=== PATIENT | male | born 1930 | race Caucasian/White ===

== ENCOUNTER 2016-07-31 23:00 | Inpatient (IN) | payer MEDICARE, BC ==
[~2016-07-31] VITALS: Ht 172.7 cm; Wt 68.2 kg
--- NOTE | ~2016-07-31 | CON ---
PATIENT'S NAME: ELADIO SIMMS [facility] AGE: 85 Y [address] ROOM: [place] [address] LOCATION: GPCU ADMIT DATE: 08/01/2016 Consultation DISCHARGE DATE: 08/10/2016 FAMILY PHYSICIAN: Miko Hirsch MD ATTENDING PHYSICIAN: Laureano Lambert DATE OF CONSULTATION: 08/04/2016 REFERRING PHYSICIAN: Leonidas Finley MD INDICATION: Acute on chronic respiratory failure with history of pulmonary fibrosis. HISTORY OF PRESENT ILLNESS: This is an 85-year-old male admitted for shortness of breath and chest pain. He has a history of pulmonary fibrosis; chronic respiratory failure, using 4 L per nasal cannula continuously at home; COPD; CAD; and other comorbidities. He was admitted back in May for bilateral pneumonia and discharged in June to a residential and then last week back to home. The last few days, he reports increased shortness of breath, requiring up to 6 L per nasal cannula. He was started on Levaquin and changed to Zosyn recently. He had an ABG done that was okay. Chest x-ray shows effusions with consolidation and scarring. His O2 needs have not improved any despite current adjustments in medications. He still continues to complain of shortness of breath and cough with white sputum. No wheezing, edema, or hemoptysis. PAST MEDICAL HISTORY: Pulmonary fibrosis; chronic respiratory failure; CAD; atrial fibrillation; MVR, on long-term anticoagulation; hypertension; and diabetes. ALLERGIES: SEE MAR. MEDICATIONS: See MAR. FAMILY HISTORY: Significant for CAD in his father. His brother and sister had CAD. His brother also had prostate cancer. SOCIAL HISTORY: He is and lives with his in [place]. He denies any history of tobacco or alcohol use. REVIEW OF SYSTEMS: A 12-point review of systems negative except for what is noted in the HPI. PATIENT'S NAME: ELDAIO SIMMS [facility] AGE: 85 Y [address] ROOM: [address] [address] LOCATION: GPCU ADMIT DATE: 08/01/2016 Consultation DISCHARGE DATE: 08/10/2016 FAMILY PHYSICIAN: Miko Hirsch MD ATTENDING PHYSICIAN: Laureano Lambert PHYSICAL EXAMINATION: VITAL SIGNS: Blood pressure 116/59, pulse 88, respirations 20, temperature 97.6, and 93% on 5 L nasal cannula. GENERAL: This is an 85-year-old male, well developed, well nourished, without any acute distress. He is alert and oriented x3. HEENT: Head: Normocephalic and atraumatic. Eyes: Clear. NECK: Supple. No adenopathy. No carotid bruits or JVD. LUNGS: Diminished with rhonchi and rales. No wheezes. HEART: Regular rate and rhythm without murmur, gallop, or rub. ABDOMEN: Soft, nontender, and nondistended. Bowel sounds x4. EXTREMITIES: No cyanosis, clubbing, or edema. DIAGNOSTIC DATA: Procalcitonin less than 0.05, lactate 3, proBNP 771, and INR was 4.5 on admission. ASSESSMENT: 1. Acute on chronic respiratory failure, multifactorial, question related to progression of pulmonary fibrosis versus pneumonia versus effusion versus fluid overload. 2. Pulmonary fibrosis, question worsening. 3. Cor pulmonale/severe pulmonary hypertension, question fluid overload. 4. Chronic obstructive pulmonary disease. 5. Pneumonia. PLAN: We will check CT of the chest to better differentiate between differential diagnoses. We will also order a sputum culture and continue with current antibiotics as ordered for now. We will hold off on steroids until CT of the chest is available, agree with increasing diuretics for now. We will also have the patient work on incentive spirometer and flutter valve. Further recommendations will be made per Dr. Paul, pending his evaluation, and results of testing. Thank you for the consult and opportunity to participate in the patient's care. PEGGY MORALES APRN FOR CRISSY PAUL, [facility]/modl PATIENT'S NAME: ELADIO SIMMS [facility] AGE: 85 Y [address] ROOM: [place] [id number] LOCATION: GPCU ADMIT DATE: 08/01/2016 Consultation DISCHARGE DATE: 08/10/2016 FAMILY PHYSICIAN: Miko Hirsch MD ATTENDING PHYSICIAN: Laureano Lambert /[id number] d: 09/26/16 1838 t: 09/28/16 0741, CONSULTATION REPORT
--- NOTE | ~2016-07-31 | CON ---
PATIENT'S NAME: ELADIO SIMMS [facility] AGE: 85 Y [address] ROOM: [id number] [place], [place] [address] LOCATION: GPCU ADMIT DATE: 08/01/2016 Consultation DISCHARGE DATE: FAMILY PHYSICIAN: SKYLA DIAMOND MD ATTENDING PHYSICIAN: Laureano Lambert DATE OF CONSULTATION: 08/04/2016 REFERRING PHYSICIAN: Leonidas Finley MD REFERRING PROVIDER: Gurjit Byrd M.D. HISTORY OF PRESENT ILLNESS: This is a pleasant 85-year-old male, who was recently admitted on August 01, 2016, with acute on chronic hypoxic respiratory failure. The patient does have a past medical history of mechanical aortic valve replacement, on long- term anticoagulation as well as atrial fibrillation. The patient did experience a bowel movement yesterday, staff reports there was a small amount of bright red blood per rectum. We were asked to see in consultation for the noted blood in the stool. The patient was seen and examined. The patient denies any britni abdominal pain, nausea, or vomiting. He does state that intermittently he does experience bright red blood at home. In review of the patient's medical history, he did undergo a full colonoscopy due to lower GI bleed in [address] Donnell Davis. At that time, the patient was found to have severe diverticulosis as well as internal and external hemorrhoids. The patient also was admitted in May 2016 and also experienced bright red blood within his stool and a positive occult heme test. The patient then underwent a flexible sigmoidoscopy that was essentially for any acute bleed. The patient was found to have grade 2 to 3 hemorrhoids that is most likely the cause at that time for his bleed. The patient's hemoglobin has remained stable. The patient denies any associated abdominal pain, nausea, vomiting, chest pain, chest pressure, or shortness of breath. PAST MEDICAL HISTORY: Pulmonary fibrosis; atrial fibrillation; mechanical aortic valve replacement, on long-term anticoagulation with being Coumadin; coronary artery disease; chronic hypoxic respiratory failure, status post CABG; essential hypertension; diabetes mellitus type 2; and chronic constipation. PAST SURGICAL HISTORY: Mechanical valve replacement, CABG, colonoscopy and upper endoscopy in 2013, flexible sigmoidoscopy in May 2016, right renal artery stent, and tonsillectomy. SOCIAL HISTORY: PATIENT'S NAME: ELADIO SIMMS [facility] AGE: 85 Y [address] ROOM: [id number] [place], [place] [address] LOCATION: GPCU ADMIT DATE: 08/01/2016 Consultation DISCHARGE DATE: FAMILY PHYSICIAN: SKYLA DIAMOND MD ATTENDING PHYSICIAN: Laureano Lambert The patient is and lives in [place]. He has no significant history of tobacco or alcohol use. FAMILY HISTORY: The patient's mother had heart problems and coronary artery disease. The patient's sister also had heart disease. The patient's brother had prostate cancer. The patient's sister had breast cancer. He had 2 brothers with heart bypass. ALLERGIES: NO KNOWN MEDICATION ALLERGIES. CURRENT MEDICATIONS: Please refer to the medication administration record. REVIEW OF SYSTEMS: A 10-point review of systems was completed. All were negative except for those identified in the history of present illness. PHYSICAL EXAMINATION: GENERAL: Pleasant, 85-year-old male, who is sitting in the chair, who appears to be in no acute distress. VITAL SIGNS: Temperature 97.6, pulse of 90, respirations of 20, blood pressure 153/74, and oxygen saturation is 96% on 5 L nasal cannula. SKIN: [place], warm, and dry. No jaundice. HEENT: Head is normocephalic and atraumatic. Pupils are equal, round, and reactive to light. Sclerae are clear. Nonicteric. Oral mucosa is pink and moist. No thyromegaly. NECK: Soft and supple. CARDIOVASCULAR: Regular. Normal S1 and S2. RESPIRATORY: Respirations even and unlabored. LUNGS: Clear to auscultation. ABDOMEN: Soft, round, nontender, and nondistended. Bowel sounds positive x4 quadrants. MUSCULOSKELETAL: No muscle weakness or atrophy. EXTREMITIES: No clubbing, cyanosis, or edema. NEUROLOGIC: Grossly nonfocal. LABS AND DIAGNOSTICS: The patient was admitted with a hemoglobin of 10.6. Hemoglobin this morning was 10.8 with hematocrit of 35.8. Chemistry panel from August 03, 2016, included glucose of 115, BUN of 25, creatinine 0.9, sodium 139, potassium 4.2, chloride 102, CO2 of 28, and albumin of 3.1. Liver enzymes have been within normal limits. Phosphorus of 3.4. Pro-time of 16.2. INR is 1.5. PATIENT'S NAME: ELADIO SIMMS [facility] AGE: 85 Y [address] ROOM: [address] [place], [place] [address] [facility] ADMIT DATE: 08/01/2016 Consultation DISCHARGE DATE: FAMILY PHYSICIAN: SKYLA DIAMOND MD ATTENDING PHYSICIAN: Laureano Lambert ASSESSMENT AND PLAN: Again, this is a pleasant 85-year-old male, who was recently admitted with acute on chronic respiratory failure secondary to pneumonia. The patient did have a bowel movement as bright red blood was noted within the stool. We were asked to see in consultation for this. After further evaluation as well as the patient's hemoglobin remaining stable as well as recent flexible sigmoidoscopy completed in May 2016, we will recommend to continue watching this patient and monitoring the patient's hemoglobin as well as stool output. The patient's bleed is likely related to significant hemorrhoids that were found in May. The patient is recommended to go back on long-term anticoagulation secondary to his mechanical valve as well as atrial fibrillation. Again, continue monitoring of the patient's hemoglobin is recommended as well. We will also discontinue the Protonix drip at this time. Further recommendations to be given over the patient's clinical course. Thank you for this consult and allowing us to participate in the care of this patient. We will continue to monitor, evaluate, and treat as appropriate. ANDER GRANADO APRN FOR MD ANDREW DURAN/modl /[id number] d: 08/04/161816 t: 08/15/16 1734, CONSULTATION REPORT
--- NOTE | ~2016-07-31 | ER ---
PATIENT'S NAME: ELADIO SIMMS [facility] AGE: 85 Y [address] ROOM: [place] [address] LOCATION: [facility] ADMIT DATE: 07/31/2016 ER/Outpatient Report DISCHARGE DATE: FAMILY PHYSICIAN: Miko Hirsch MD ATTENDING PHYSICIAN: Aris Pennington Admission date and time documented in the medical record. I saw the patient at 2315 hours. CHIEF COMPLAINT: Chest pain and shortness of breath. HISTORY OF PRESENT ILLNESS: The patient is an 85-year-old male, who had onset of anterior chest pain with increasing shortness of breath, weakness, lightheadedness around 1930 hours this evening. [facility] EMS crew brought the patient to the emergency room for evaluation. En route, they gave him 3 baby aspirin. His pain pretty much resolved. He continued to have a little bit of shortness of breath and was on 6 L oxygen on arrival here. The patient does have a history of chronic respiratory failure, COPD, pulmonary fibrosis, home O2 requirement 06/02. He does have systolic congestive heart failure and recently had pneumonia. Recently, he was released from the intermediate after he convalesced and recovered from his bout with pneumonia. The patient does have non-insulin- dependent diabetes mellitus, no other endocrine problems. He has had some syncope but no other neuro changes. Does have valvular heart disease, aortic stenosis, status post aortic valve replacement. He has paroxysmal atrial fibrillation and is on chronic anticoagulation, using Coumadin. He has had some previous rectal bleeding from hemorrhoids and diverticulosis. Does have some chronic renal disease. He has renal artery stenosis, has been stented. No abdominal pain or chest pain at this time. No nausea, vomiting, diarrhea, or urinary complaints. No syncope. Recently, he had pneumonia, otherwise over the past week, he has not had any fever, chills, sweats, coughs, colds, or flus. No headache, eyes, ears, nose, throat, neck, or spine pain. No skin eruptions or rash. HOME MEDICATIONS: See attached medication list. ALLERGIES: NONE. SOCIAL HISTORY: Nonsmoker, nondrinker. SIGNIFICANT PAST MEDICAL HISTORY: Atherosclerotic ischemic heart disease, coronary artery disease, valvular heart disease with aortic stenosis, COPD, acute on chronic respiratory PATIENT'S NAME: ELADIO SIMMS [facility] AGE: 85 Y [address] ROOM: [place], [place] [address] LOCATION: ED ADMIT DATE: 07/31/2016 ER/Outpatient Report DISCHARGE DATE: FAMILY PHYSICIAN: Miko Hirsch MD ATTENDING PHYSICIAN: Aris Pennington failure, pneumonia, systolic congestive heart failure, renal artery stenosis, syncope, cervical spinous process fracture, ieo-vmlydco-kfrpjsonz diabetes mellitus type 2, peripheral vascular disease, diverticulosis in sigmoid region, hemorrhoids, pulmonary fibrosis with home O2 requirement 24/7, 4 L/minute. OPERATIONS: Aortic valve replacement, C-spine fracture repair, tonsillectomy, adenoidectomy, colonoscopy, sigmoidoscopy, cardiac catheterization with PTCA and stenting, also stenting of the renal artery, coronary artery bypass graft. REVIEW OF SYSTEMS: All systems reviewed by me are negative with the exception of those discussed in the history of present illness. PHYSICAL EXAMINATION: VITAL SIGNS: Blood pressure 123/60, pulse 100, respirations 24, O2 saturation on 6 L oxygen per nasal cannula is 96%. HEENT: Head: Normocephalic. Eyes: Clear. Ears: Clear TMs bilaterally. Nose and Throat: Clear. Mucous membranes moist. Teeth and jaw intact. NECK: No nuchal rigidity. No thyromegaly or cervical adenopathy. No tenderness. SPINE: Negative. LUNGS: Decreased breath sounds, diffusely basilar rales. The patient is tachypneic. HEART: Tachy, regular. Pulses palpable. No chest wall or ribcage pain to palpation. ABDOMEN: Soft, nondistended, nontender. Good bowel tones. No organomegaly or abnormal mass palpable. No CVA tenderness. EXTREMITIES: Without peripheral edema, cyanosis, or deformity. Neurovascularly intact. SKIN: Clear. No skin eruptions or rash. LABORATORY DATA AND X-RAYS: Chest x-ray showed bibasilar fluid, pulmonary effusion. He has congestive heart failure pattern. Could have some infiltrate in the bases. We will review x-ray with the radiologist. EKG showed sinus rhythm. No acute ST elevation, ischemic change, or arrhythmia. Fmdbd-nh-kgvu cardiac enzymes were normal. CPK was normal at 49. Magnesium was normal at 2.1. CRP was normal at less than 0.29. ProBNP was elevated at 933. Arterial blood gases on 6 L oxygen showed a pH of 7.4, pCO2 of 46, pO2 of 74, with an O2 saturation of 95%. Lactate was elevated at 2.8. Procalcitonin was normal at less than 0.05. CMS was normal except for low glucose of 42, elevated BUN of 39, elevated creatinine of 1.4, low GFR of 48. PATIENT'S NAME: ELADIO SIMMS [facility] AGE: 85 Y [address] ROOM: [place], [place] [address] LOCATION: [facility] ADMIT DATE: 07/31/2016 ER/Outpatient Report DISCHARGE DATE: FAMILY PHYSICIAN: Miko Hirsch MD ATTENDING PHYSICIAN: Aris Pennington White count was 11,900, 80 segs, 11 lymphs, 8 monos, 1 eosinophil, hemoglobin was 10.6, hematocrit 35.5 platelet count was 204,000. Sedimentation rate was 20. PTT was 41, pro-time was 57.3 with an INR of 4.8. EMERGENCY DEPARTMENT COURSE: I did start the patient on some IV normal saline 100 mL an hour. Did give him a half an amp of D50 IV for his hypoglycemia. IMPRESSION: 1. Chest pain with known atherosclerotic ischemic heart disease with coronary artery disease. The patient is status post coronary bypass graft. 2. Valvular heart disease with aortic stenosis, status post aortic valve replacement. The patient is on chronic anticoagulation with Coumadin. 3. Systolic congestive heart failure. 4. Chronic obstructive pulmonary disease. 5. Acute on chronic respiratory failure. 6. Renal artery stenosis with chronic kidney disease. 7. Chronic anticoagulation with Coumadin. 8. Xlj-huisnhb-fooserymx diabetes mellitus type 2. The patient is hypoglycemic here in the emergency department. 9. Peripheral vascular disease. 10. History of lower gastrointestinal bleed secondary to hemorrhoids and diverticulosis. 11. History of pulmonary fibrosis, requiring O2 at 4 L of oxygen per minute, 24/7 at home. 12. History of paroxysmal atrial fibrillation. PLAN: I did discuss the patient with Dr. Lambert, hospitalist. We will admit the patient for observation in the hospital PCU telemetry. Further evaluation and treatment per Dr. Lambert. Discussed my findings and recommendations with the patient. He understands. The patient will be admitted to the PCU telemetry. MD GERALDINE BARON/sher /[id number] d: 08/01/16 0152 t: 08/01/16 1811, OUTPATIENT REPORT
--- NOTE | ~2016-07-31 | HP ---
PATIENT'S NAME: ELADIO SIMMS [facility] AGE: 85 Y [address] ROOM: [place] [address] LOCATION: GPCU ADMIT DATE: 08/01/2016 History & Physical DISCHARGE DATE: FAMILY PHYSICIAN: SKYLA DIAMOND MD ATTENDING PHYSICIAN: Laureano Lambert DATE OF SERVICE: CHIEF COMPLAINT: Cdcum-yd-xpjzovs hypoxic respiratory failure. HISTORY OF PRESENTING ILLNESS: This 85-year-old white male with known history of coronary artery disease and chronic hypoxic respiratory failure, was brought to [facility] Emergency Room by [facility] with shortness of breath and chest pain, which came on around 7:30 this evening after he had eaten. He received some aspirin en route to the hospital and his chest pain had essentially resolved by the time he arrived here. He did have some increased oxygen demand from his usual 4 L to 6 L per nasal cannula. Currently, he reports feeling better, but complains of feeling weak and short of breath. He had recently been hospitalized for pneumonia and then subsequently discharged to a nursing facility. He had been getting along relatively well there and was discharged to home this past week. He has apparently not been doing well since returning home. He denies fevers, chills, or sweats. Appetite has been fair. No difficulties with chewing or swallowing. Denies britni chest pain and no abdominal pain. He has been stooling and voiding per his usual. No numbness, tingling, or weakness in his extremities or any other associated physical or constitutional complaints. PAST MEDICAL HISTORY: ALLERGIES: NO KNOWN DRUG ALLERGIES. ILLNESSES: 1. Coronary artery disease, status post coronary artery bypass grafting. 2. Chronic hypoxic respiratory failure. 3. Pulmonary fibrosis. 4. Atrial fibrillation. 5. Mechanical aortic valve replacement, on long-term anticoagulation with warfarin. 6. Essential hypertension. 7. Diabetes mellitus type 2. 8. Chronic constipation. CURRENT MEDICATIONS: PATIENT'S NAME: ELADIO SIMMS [facility] AGE: 85 Y [address] ROOM: [place] [address] LOCATION: GPCU ADMIT DATE: 08/01/2016 History & Physical DISCHARGE DATE: FAMILY PHYSICIAN: SKYLA DIAMOND MD ATTENDING PHYSICIAN: Laureano Lambert 1. Aspirin 81 mg p.o. daily. 2. Coumadin daily. 3. Anusol cream suppository b.i.d. p.r.n. 4. Isosorbide mononitrate 30 mg p.o. b.i.d. 5. Metformin 1000 mg p.o. b.i.d. 6. Omeprazole 40 mg p.o. daily. 7. Potassium 40 mEq p.o. daily. 8. Ramipril 2.5 mg p.o. b.i.d. 9. Simvastatin 40 mg p.o. daily. 10. Sotalol 80 mg p.o. b.i.d. 11. Albuterol per nebulizer q.6 hours p.r.n. 12. Glimepiride 4 mg p.o. daily. 13. Lasix 20 mg p.o. daily. 14. Magnesium oxide 400 mg p.o. daily. FAMILY HISTORY: Significant for coronary artery disease in his father. His brother and sister also had coronary artery disease. His brother had prostate cancer. SOCIAL HISTORY: He is and lives in [place]. There is no significant history of tobacco use or alcohol use. REVIEW OF SYSTEMS: As per HPI. All other organ systems reviewed and are negative. OBJECTIVE: VITAL SIGNS: Temperature 97.1, pulse 100, respirations 24, blood pressure 123/60, and O2 saturation 96% on 6 L per simple mask. GENERAL: He is frail, mildly ill-appearing, in no acute distress. SKIN: Supple, pink, warm, dry. No obvious rashes. HEENT: Otherwise, normocephalic. Sclerae nonicteric. Pupils equal, round, and reactive to light and accommodation. Extraocular movements appear intact. Nasal turbinates normal in appearance. Oropharynx is clear. Mucous membranes are pink and moist. NECK: Supple. No masses or adenopathy. No thyromegaly. No obvious JVD in the seated position. CHEST: Chest wall symmetrical. HEART: Irregular with a grade 2 to 3/6 systolic ejection murmur. LUNGS: Diminished at the bases. No crackles but coarse. There is some large airway congestion. ABDOMEN: Soft, nontender. Bowel sounds present. No mass or hepatosplenomegaly. and RECTAL: Not done. EXTREMITIES: Display no significant clubbing, cyanosis, or edema. PATIENT'S NAME: ELADIO SIMMS [facility] AGE: 85 Y [address] ROOM: [id number] [place], [place] [address] [facility] ADMIT DATE: 08/01/2016 History & Physical DISCHARGE DATE: FAMILY PHYSICIAN: SKYLA DIAMOND MD ATTENDING PHYSICIAN: Laureano Lambert LABORATORY AND X-RAY DATA: CBC showed a white blood cell count elevated at 11.9, hemoglobin is 10.6, hematocrit 35.5, platelets 204. Chemistries reveal a BUN and creatinine of 39 and 1.4 respectively, sodium and potassium of 141 and 4.6, chloride and CO2 are 105 and 25, calcium is 8.8, AST and ALT of 13 and 18 respectively, bilirubin is 0.2. Magnesium was 2.1. Glucose was low at 42 (this has been corrected). Sedimentation rate was 20. INR was elevated at 4.8. Cardiac enzymes revealed a troponin I of less than 0.04, CPK of 49, CK-MB was 2.5 and proBNP was 933. ABGs revealed a pH of 7.4, pCO2 of 46, pO2 of 74. Lactate was elevated at 2.8. Procalcitonin was less than 0.05. Chest x-ray showed findings consistent with bilateral pleural effusions and some bibasilar infiltrate. ASSESSMENT AND PLAN: 1. Mcwsk-mg-aielgch hypoxic and hypercapnic respiratory failure, multifactorial: We will admit to inpatient care. We will provide supportive cares and supplemental oxygen. Encourage good pulmonary hygiene. We will go ahead and initiate antibiotic therapy with levofloxacin and follow up on blood culture results when they are available. We will likely reconsult Pulmonology who have been following his case. 2. Atypical chest pain, resolved. We will trend cardiac enzymes. Plan to continue with aspirin therapy, statin therapy and monitor. 3. Acute kidney injury, prerenal: We will initiate some very gentle IV fluid hydration therapy and monitor. 4. Diabetes mellitus type 2: We will manage with Accu-Cheks and sliding scale insulin. 5. Severe pulmonary hypertension: We will try to encourage good pulmonary hygiene as above. Watch his fluid volume balance. 6. Coronary artery disease: As above, we will continue with aspirin and statin therapy. He is clinically stable currently. 7. Generalized weakness: He might benefit from some physical therapy and occupational therapy. I suspect that he has probably failed his first trial back at home and may need some consideration for permanent long- term care placement. 8. Valvular heart disease, status post aortic valve replacement, stable, on long-term anticoagulation with warfarin. He is a little supratherapeutic, and we will hold his Coumadin tonight and follow his PT and INR. 9. Deep venous thrombosis prophylaxis: He is fully anticoagulated with warfarin. We will mobilize as he is physically able. PATIENT'S NAME: ELADIO SIMMS [facility] AGE: 85 Y [address] ROOM: [place] [address] LOCATION: [facility] ADMIT DATE: 08/01/2016 History & Physical DISCHARGE DATE: FAMILY PHYSICIAN: SKYLA DIAMOND MD ATTENDING PHYSICIAN: Laureano Lambert MD EVANGELISTA ALEMAN/sher /[id number] D: [id number] T: 750 HISTORY & PHYSICAL
--- NOTE | ~2016-07-31 | DS ---
PATIENT'S NAME: ELADIO SIMMS [facility] AGE: 85 Y [address] ROOM: [place] [id number] LOCATION: GPCU ADMIT DATE: 08/01/2016 Discharge Summary DISCHARGE DATE: 08/10/2016 FAMILY PHYSICIAN: Miko Hirsch MD ATTENDING PHYSICIAN: Laureano Lambert PRIMARY DIAGNOSES: 1. Irirv-hw-hhnpact cor pulmonale. 2. Ydnlg-zq-jaxrlpf hypoxic and hypercapnic respiratory failure with chronic obstructive pulmonary disease. 3. Idiopathic pulmonary fibrosis. 4. Healthcare-acquired pneumonia. 5. Diabetes mellitus type 2. 6. Chronic systolic and diastolic congestive heart failure. 7. Moderate protein-calorie malnutrition (present at admission). 8. Hemorrhoids with lower gastrointestinal bleeding. OPERATIONS OR PROCEDURES: None. HISTORY OF PRESENTING ILLNESS AND REASON FOR ADMISSION: Please refer to the H and P dictated on 08/01/2016. HOSPITAL COURSE: The patient was admitted to the hospital as noted above with a presumptive diagnosis of hcezv-lb-lbumtbx hypoxic and hypercapnic respiratory failure. Clinical evaluation revealed suspected healthcare- acquired pneumonia. He was treated for known cor pulmonale with careful diuresis. His clinical condition was slow to improve. Antibiotic therapy was adjusted to include linezolid to cover for MRSA. His cultures remained negative over the course of his hospital stay. He did receive some physical therapy occupational therapy. He completed a 7- day course of linezolid. Pulmonology did assist in management. By the end of the 10th day of his hospital stay, it was felt he would be stable enough for discharge to home, to resume home health and continue home oxygen therapy. DISCHARGE INSTRUCTIONS: DIET: ADA, 2000-calorie per day as tolerated. ACTIVITY: As tolerated. He will have physical therapy and occupational therapy at home. MEDICATIONS: PATIENT'S NAME: ELADIO SIMMS [facility] AGE: 85 Y [address] ROOM: [place] [id number] LOCATION: GPCU ADMIT DATE: 08/01/2016 Discharge Summary DISCHARGE DATE: 08/10/2016 FAMILY PHYSICIAN: Miko Hirsch MD ATTENDING PHYSICIAN: Laureano Lambert 1. Augmentin 875 mg p.o. b.i.d. x1 more day. 2. Aspirin 81 mg p.o. daily. 3. Lasix 40 mg p.o. daily. 4. Amaryl 4 mg p.o. daily. 5. Isosorbide mononitrate 30 mg p.o. b.i.d. 6. Ramipril 2.5 mg p.o. b.i.d. 7. Magnesium oxide 400 mg p.o. daily. 8. Potassium 40 mEq p.o. daily. 9. Simvastatin 40 mg p.o. daily. 10. Sotalol 80 mg p.o. b.i.d. 11. Coumadin 6 mg p.o. daily. 12. Metformin 1000 mg p.o. b.i.d. 13. Omeprazole 40 mg p.o. daily. 14. Albuterol per nebulizer q.6 hours. FOLLOWUP: He will follow up with Dr. Miko Hirsch in 5 to 7 days. CONDITION ON DISCHARGE: Good. Total time spent on discharge process 45 minutes. MD EVANGELISTA ALEMAN/sher /[id number] d: 08/11/16 0324 t: 08/11/16 1753, DISCHARGE SUMMARY
[~2016-07-31 23:00] MED LIST: ALTACE2.5 MG PO; AMARYL4 MG PO; ASPIRIN LO-DOSE81 MG PO; BETAPACE (GENER80 MG PO; COUMADIN6 MG; COUMADIN6 MG PO; IMDUR30 MG PO; LASIX40 MG PO; MAG-OX-400(241400 MG PO; METFORMIN HCL1000 MG PO; OMEPRAZOLE40 MG PO; ZOCOR40 MG PO
[2016-08-01 00:20] LABS: BASOPHIL % 0.2 %; EOSINOPHIL # 0.1 K/uL (0.0-0.5); EOSINOPHIL % 0.7 %; HEMATOCRIT 35.5 % (33.0-50.0); HEMOGLOBIN 10.6 g/dL (11.0-16.0); IMMATURE GRANULOCYTE # 0.1 K/uL (0.0-0.3); IMMATURE GRANULOCYTE % 0.4 %; LYMPHOCYTE # 1.3 K/uL (0.8-4.0); LYMPHOCYTE % 10.6 %; MCH 24.7 pg (27.0-34.0); MCHC 29.9 gm/dL (32.0-36.5); MCV 82.6 fl (83.0-98.0); MONOCYTE # 0.9 K/uL (0.0-1.0); MONOCYTE % 7.9 %; MPV 10.8 fl (9.4-12.4); NEUTROPHIL # (ANC) 9.5 K/uL (1.4-9.0); NEUTROPHIL % 80.2 %; NRBC % 0 /100WBC (0-0.00); PLATELET COUNT 204 K/uL (150-450); RDW-CV 17.3 % (11.9-14.6); WBC 11.9 K/uL (4.0-11.0)
[2016-08-01 00:27] LABS: BICARBONATE 28.5 mmol/L (18.0-23.0); LACTATE 2.8 mEq/L (0.50-1.60); PCO2 46 mmHg (35-45); PO2 74 mmHg (80-90)
[2016-08-01 00:32] LABS: PTT 41 SECONDS (25-32)
[2016-08-01 00:33] LABS: INR - (THERAPEUTIC) 4.8 (0.9-1.1); PROTIME 57.3 SECONDS (9.6-11.1)
[2016-08-01 00:34] LABS: ALBUMIN 3.3 gm/dL (3.5-5.0); ALK PHOS 60 IU/L (33-138); ALT 18 IU/L (12-78); ANION GAP 15.6 (10.0-19.0); AST 13 IU/L (10-40); BLOOD UREA NITROGEN 39 mg/dL (6-24); CALCIUM 8.8 mg/dL (8.5-10.5); CHLORIDE 105 mMol/L (96-110); CO2 25 mMol/L (22-32); CPK 49 IU/L (35-332); CREATININE 1.4 mg/dL (0.6-1.3); ESTIMATED GFR (MDRD EQUATION) 48; MAGNESIUM 2.1 mg/dL (1.3-2.6); POTASSIUM 4.6 mMol/L (3.7-5.1); SODIUM 141 mMol/L (135-145); TOTAL BILIRUBIN 0.2 mg/dL (0.0-1.5); TOTAL PROTEIN 6.6 g/dL (6.0-8.4)
[2016-08-01 01:29] LABS: CPK 36 IU/L (35-332)
[2016-08-01] MEDS ORDERED: K-TAB ER20 MEQ PO (03:50)
[2016-08-01] MEDS ORDERED: ALBUTEROL2.5 MG/31 INH (03:53)
[2016-08-01 08:04] LABS: BASOPHIL % 0.2 %; EOSINOPHIL # 0.1 K/uL (0.0-0.5); EOSINOPHIL % 0.5 %; HEMATOCRIT 38.2 % (33.0-50.0); HEMOGLOBIN 11.5 g/dL (11.0-16.0); IMMATURE GRANULOCYTE # 0.1 K/uL (0.0-0.3); IMMATURE GRANULOCYTE % 0.5 %; LYMPHOCYTE # 0.9 K/uL (0.8-4.0); LYMPHOCYTE % 8.6 %; MCH 25.1 pg (27.0-34.0); MCHC 30.1 gm/dL (32.0-36.5); MCV 83.2 fl (83.0-98.0); MONOCYTE # 0.8 K/uL (0.0-1.0); MONOCYTE % 7.7 %; MPV 10.7 fl (9.4-12.4); NEUTROPHIL # (ANC) 8.8 K/uL (1.4-9.0); NEUTROPHIL % 82.5 %; NRBC % 0 /100WBC (0-0.00); PLATELET COUNT 197 K/uL (150-450); RBC 4.59 M/uL (3.50-5.50); RDW-CV 17.3 % (11.9-14.6); WBC 10.7 K/uL (4.0-11.0)
[2016-08-01 08:17] LABS: INR - (THERAPEUTIC) 4.2 (0.9-1.1); PROTIME 49.9 SECONDS (9.6-11.1)
[2016-08-01 08:23] LABS: ALBUMIN 3.3 gm/dL (3.5-5.0); ANION GAP 14.1 (10.0-19.0); BLOOD UREA NITROGEN 30 mg/dL (6-24); CALCIUM 8.6 mg/dL (8.5-10.5); CHLORIDE 103 mMol/L (96-110); CO2 27 mMol/L (22-32); PHOSPHORUS 2.7 mg/dL (2.5-4.9); POTASSIUM 4.1 mMol/L (3.7-5.1); SODIUM 140 mMol/L (135-145)
[2016-08-01 08:28] LABS: CPK 41 IU/L (35-332); ESTIMATED GFR (MDRD EQUATION) > 60
[2016-08-01] MEDS ORDERED: LEVAQUIN500 MG (09:44)
[2016-08-01 15:19] LABS: CPK 33 IU/L (35-332)
[2016-08-01 20:28] LABS: CPK 34 IU/L (35-332)
[2016-08-02 06:23] LABS: BASOPHIL # 0.1 K/uL (0.0-0.2); BASOPHIL % 0.4 %; EOSINOPHIL # 0.1 K/uL (0.0-0.5); EOSINOPHIL % 0.9 %; HEMATOCRIT 37.6 % (33.0-50.0); HEMOGLOBIN 11.1 g/dL (11.0-16.0); IMMATURE GRANULOCYTE # 0.1 K/uL (0.0-0.3); IMMATURE GRANULOCYTE % 0.5 %; LYMPHOCYTE # 1.3 K/uL (0.8-4.0); LYMPHOCYTE % 10.9 %; MCH 24.2 pg (27.0-34.0); MCHC 29.5 gm/dL (32.0-36.5); MCV 81.9 fl (83.0-98.0); MONOCYTE # 1.1 K/uL (0.0-1.0); MPV 10.4 fl (9.4-12.4); NEUTROPHIL # (ANC) 9.4 K/uL (1.4-9.0); NEUTROPHIL % 78.3 %; NRBC % 0 /100WBC (0-0.00); PLATELET COUNT 218 K/uL (150-450); RBC 4.59 M/uL (3.50-5.50); RDW-CV 17.1 % (11.9-14.6); WBC 12.1 K/uL (4.0-11.0)
[2016-08-02 06:37] LABS: INR - (THERAPEUTIC) 2.8 (0.9-1.1); PROTIME 32.3 SECONDS (9.6-11.1)
[2016-08-03 05:36] LABS: BASOPHIL % 0.4 %; EOSINOPHIL # 0.1 K/uL (0.0-0.5); EOSINOPHIL % 1.5 %; HEMATOCRIT 35.4 % (33.0-50.0); HEMOGLOBIN 10.8 g/dL (11.0-16.0); IMMATURE GRANULOCYTE # 0.1 K/uL (0.0-0.3); IMMATURE GRANULOCYTE % 0.7 %; LYMPHOCYTE # 1.3 K/uL (0.8-4.0); LYMPHOCYTE % 13.9 %; MCH 24.8 pg (27.0-34.0); MCHC 30.5 gm/dL (32.0-36.5); MCV 81.2 fl (83.0-98.0); MONOCYTE # 0.9 K/uL (0.0-1.0); MONOCYTE % 9.6 %; MPV 10.2 fl (9.4-12.4); NEUTROPHIL # (ANC) 6.7 K/uL (1.4-9.0); NEUTROPHIL % 73.9 %; NRBC % 0 /100WBC (0-0.00); PLATELET COUNT 182 K/uL (150-450); RBC 4.36 M/uL (3.50-5.50); RDW-CV 17.2 % (11.9-14.6); WBC 9.1 K/uL (4.0-11.0)
[2016-08-03 05:50] LABS: ALBUMIN 3.1 gm/dL (3.5-5.0); ANION GAP 13.2 (10.0-19.0); BLOOD UREA NITROGEN 25 mg/dL (6-24); CALCIUM 8.6 mg/dL (8.5-10.5); CHLORIDE 102 mMol/L (96-110); CO2 28 mMol/L (22-32); CREATININE 0.9 mg/dL (0.6-1.3); ESTIMATED GFR (MDRD EQUATION) > 60; INR - (THERAPEUTIC) 1.9 (0.9-1.1); PHOSPHORUS 3.4 mg/dL (2.5-4.9); POTASSIUM 4.2 mMol/L (3.7-5.1); PROTIME 21.5 SECONDS (9.6-11.1); SODIUM 139 mMol/L (135-145)
[2016-08-03 22:01] LABS: BASOPHIL % 0.4 %; EOSINOPHIL # 0.2 K/uL (0.0-0.5); EOSINOPHIL % 1.8 %; HEMATOCRIT 36.2 % (33.0-50.0); HEMOGLOBIN 11.1 g/dL (11.0-16.0); IMMATURE GRANULOCYTE # 0.1 K/uL (0.0-0.3); IMMATURE GRANULOCYTE % 0.6 %; LYMPHOCYTE # 1.4 K/uL (0.8-4.0); LYMPHOCYTE % 14.2 %; MCH 25.1 pg (27.0-34.0); MCHC 30.7 gm/dL (32.0-36.5); MCV 81.7 fl (83.0-98.0); MONOCYTE # 0.8 K/uL (0.0-1.0); MONOCYTE % 8.3 %; MPV 10.3 fl (9.4-12.4); NEUTROPHIL # (ANC) 7.1 K/uL (1.4-9.0); NEUTROPHIL % 74.7 %; NRBC % 0 /100WBC (0-0.00); PLATELET COUNT 190 K/uL (150-450); RBC 4.43 M/uL (3.50-5.50); RDW-CV 17.3 % (11.9-14.6); WBC 9.6 K/uL (4.0-11.0)
[2016-08-03 22:08] LABS: INR - (THERAPEUTIC) 1.7 (0.9-1.1); PROTIME 18.9 SECONDS (9.6-11.1); PTT 33 SECONDS (25-32)
[2016-08-04 01:31] LABS: HEMATOCRIT 35.1 % (33.0-50.0); HEMOGLOBIN 10.6 g/dL (11.0-16.0)
[2016-08-04 05:58] LABS: HEMATOCRIT 35.8 % (33.0-50.0); HEMOGLOBIN 10.8 g/dL (11.0-16.0)
[2016-08-04 06:06] LABS: INR - (THERAPEUTIC) 1.5 (0.9-1.1); PROTIME 16.2 SECONDS (9.6-11.1)
[2016-08-05 05:50] LABS: INR - (THERAPEUTIC) 1.3 (0.9-1.1); PROTIME 13.8 SECONDS (9.6-11.1)
[2016-08-06 06:15] LABS: BASOPHIL % 0.4 %; EOSINOPHIL # 0.2 K/uL (0.0-0.5); EOSINOPHIL % 2.2 %; HEMATOCRIT 37.3 % (33.0-50.0); HEMOGLOBIN 11.3 g/dL (11.0-16.0); IMMATURE GRANULOCYTE # 0.1 K/uL (0.0-0.3); IMMATURE GRANULOCYTE % 0.5 %; LYMPHOCYTE # 1.6 K/uL (0.8-4.0); MCHC 30.3 gm/dL (32.0-36.5); MCV 82.5 fl (83.0-98.0); MONOCYTE # 0.9 K/uL (0.0-1.0); MONOCYTE % 8.7 %; MPV 10.9 fl (9.4-12.4); NEUTROPHIL # (ANC) 7.1 K/uL (1.4-9.0); NEUTROPHIL % 72.2 %; NRBC % 0 /100WBC (0-0.00); PLATELET COUNT 194 K/uL (150-450); RBC 4.52 M/uL (3.50-5.50); RDW-CV 17.5 % (11.9-14.6); WBC 9.8 K/uL (4.0-11.0)
[2016-08-06 06:20] LABS: PROTIME 16.9 SECONDS (9.6-11.1)
[2016-08-06 06:23] LABS: INR - (THERAPEUTIC) 1.6 (0.9-1.1)
[2016-08-06 06:29] LABS: ALBUMIN 3.1 gm/dL (3.5-5.0); ANION GAP 11.3 (10.0-19.0); CREATININE 1.3 mg/dL (0.6-1.3); PHOSPHORUS 3.1 mg/dL (2.5-4.9); POTASSIUM 4.3 mMol/L (3.7-5.1)
[2016-08-07 02:19] LABS: INR - (THERAPEUTIC) 2.4 (0.9-1.1)
[2016-08-08 03:42] LABS: BASOPHIL # 0.1 K/uL (0.0-0.2); BASOPHIL % 0.5 %; EOSINOPHIL # 0.2 K/uL (0.0-0.5); EOSINOPHIL % 2.1 %; HEMATOCRIT 34.8 % (33.0-50.0); HEMOGLOBIN 10.7 g/dL (11.0-16.0); IMMATURE GRANULOCYTE % 0.3 %; LYMPHOCYTE # 1.4 K/uL (0.8-4.0); LYMPHOCYTE % 15.3 %; MCH 25.3 pg (27.0-34.0); MCHC 30.7 gm/dL (32.0-36.5); MCV 82.3 fl (83.0-98.0); MONOCYTE # 0.8 K/uL (0.0-1.0); MONOCYTE % 8.2 %; MPV 10.5 fl (9.4-12.4); NEUTROPHIL # (ANC) 6.8 K/uL (1.4-9.0); NEUTROPHIL % 73.6 %; NRBC % 0 /100WBC (0-0.00); PLATELET COUNT 163 K/uL (150-450); RBC 4.23 M/uL (3.50-5.50); RDW-CV 17.4 % (11.9-14.6); WBC 9.2 K/uL (4.0-11.0)
[2016-08-08 03:55] LABS: ALBUMIN 2.9 gm/dL (3.5-5.0); ANION GAP 11.4 (10.0-19.0); BLOOD UREA NITROGEN 26 mg/dL (6-24); CALCIUM 8.6 mg/dL (8.5-10.5); CHLORIDE 104 mMol/L (96-110); CO2 29 mMol/L (22-32); CREATININE 0.9 mg/dL (0.6-1.3); ESTIMATED GFR (MDRD EQUATION) > 60; PHOSPHORUS 2.6 mg/dL (2.5-4.9); POTASSIUM 4.4 mMol/L (3.7-5.1); PROTIME 34.7 SECONDS (9.6-11.1); SODIUM 140 mMol/L (135-145)
[2016-08-09 04:20] LABS: BASOPHIL # 0.1 K/uL (0.0-0.2); BASOPHIL % 0.5 %; EOSINOPHIL # 0.2 K/uL (0.0-0.5); EOSINOPHIL % 2.4 %; HEMATOCRIT 36.2 % (33.0-50.0); HEMOGLOBIN 10.8 g/dL (11.0-16.0); IMMATURE GRANULOCYTE % 0.3 %; LYMPHOCYTE # 1.6 K/uL (0.8-4.0); LYMPHOCYTE % 16.6 %; MCH 24.8 pg (27.0-34.0); MCHC 29.8 gm/dL (32.0-36.5); MONOCYTE # 0.7 K/uL (0.0-1.0); MONOCYTE % 7.7 %; MPV 10.4 fl (9.4-12.4); NEUTROPHIL % 72.5 %; NRBC % 0 /100WBC (0-0.00); PLATELET COUNT 157 K/uL (150-450); RBC 4.36 M/uL (3.50-5.50); RDW-CV 17.4 % (11.9-14.6); WBC 9.7 K/uL (4.0-11.0)
[2016-08-09 04:30] LABS: INR - (THERAPEUTIC) 2.8 (0.9-1.1); PROTIME 32.1 SECONDS (9.6-11.1)
[2016-08-09 04:33] LABS: ANION GAP 12.7 (10.0-19.0); BLOOD UREA NITROGEN 22 mg/dL (6-24); CALCIUM 8.7 mg/dL (8.5-10.5); CHLORIDE 101 mMol/L (96-110); CO2 28 mMol/L (22-32); CREATININE 0.8 mg/dL (0.6-1.3); ESTIMATED GFR (MDRD EQUATION) > 60; PHOSPHORUS 2.5 mg/dL (2.5-4.9); POTASSIUM 4.7 mMol/L (3.7-5.1); SODIUM 137 mMol/L (135-145)
[2016-08-10 03:42] LABS: BASOPHIL # 0.1 K/uL (0.0-0.2); BASOPHIL % 0.5 %; EOSINOPHIL # 0.2 K/uL (0.0-0.5); EOSINOPHIL % 2.1 %; HEMATOCRIT 36.5 % (33.0-50.0); HEMOGLOBIN 11.1 g/dL (11.0-16.0); IMMATURE GRANULOCYTE % 0.4 %; LYMPHOCYTE # 1.4 K/uL (0.8-4.0); LYMPHOCYTE % 14.4 %; MCH 24.8 pg (27.0-34.0); MCHC 30.4 gm/dL (32.0-36.5); MCV 81.5 fl (83.0-98.0); MONOCYTE # 0.8 K/uL (0.0-1.0); MONOCYTE % 8.4 %; MPV 10.5 fl (9.4-12.4); NEUTROPHIL # (ANC) 7.5 K/uL (1.4-9.0); NEUTROPHIL % 74.2 %; NRBC % 0 /100WBC (0-0.00); PLATELET COUNT 161 K/uL (150-450); RBC 4.48 M/uL (3.50-5.50); RDW-CV 17.4 % (11.9-14.6)
[2016-08-10 03:47] LABS: INR - (THERAPEUTIC) 3.3 (0.9-1.1); PROTIME 37.8 SECONDS (9.6-11.1)
[2016-08-10] MEDS ORDERED: AMOXICILLIN PO (10:34)
[2016-08-10] MEDS ORDERED: CLAVULANATE PO (10:34)
[2016-08-16] MEDS ORDERED: COUMADIN6 MG PO (15:13)
[2016-08-16] MEDS ORDERED: DELTASONE20 MG PO (15:14)
[2016-08-23] MEDS ORDERED: LEVAQUIN 750 M750 MG PO (11:13)
[2016-08-23] MEDS ORDERED: PRINIVIL (ZESTRI5 MG PO (11:15)
[2016-08-27] MEDS ORDERED: FLORAJEN460 MG PO (10:15)
[2016-09-01] MEDS ORDERED: BIPAP INH (00:15)
[2016-09-01] MEDS ORDERED: LOMOTIL1 TAB PO (00:29)
[2016-09-01] MEDS ORDERED: DELTASONE10 MG PO (00:35)
[2016-09-01] MEDS ORDERED: DELTASONE5 MG PO (00:36)
[2016-09-01] MEDS ORDERED: NOVOLOG100 UNIT/M SUB-Q (00:44)
[2016-09-01] MEDS ORDERED: GLUCAGON EMERGEN1 MG SUB-Q (00:46)
[2016-09-01] MEDS ORDERED: GLUCOSE4 GM PO (00:47)
[2016-09-01] MEDS ORDERED: PROTONIX40 MG PO (00:56)
[2016-09-01] MEDS ORDERED: ALBUTEROL2.5 MG/31 INH (08:24)
== END 2016-08-10 18:25 | disposition disaster alternative care site (69) | DRG 190 ==
LOC: GMED 23:00 → GPCU 08-01 01:37
PROVIDERS: Emergency Medicine; Family Medicine; Internal Medicine; ADMIT Family Medicine
DX: J44.0 Chronic obstructive pulmonary disease with (acute) lower respiratory infection (principal); J18.9 Pneumonia, unspecified organism; J96.21 Acute and chronic respiratory failure with hypoxia; N17.9 Acute kidney failure, unspecified; I27.2 Other secondary pulmonary hypertension; E44.0 Moderate protein-calorie malnutrition; I50.22 Chronic systolic (congestive) heart failure; E11.65 Type 2 diabetes mellitus with hyperglycemia; J96.22 Acute and chronic respiratory failure with hypercapnia; I48.91 Unspecified atrial fibrillation; I10 Essential (primary) hypertension; I25.10 Atherosclerotic heart disease of native coronary artery without angina pectoris; Z95.1 Presence of aortocoronary bypass graft; Z79.01 Long term (current) use of anticoagulants; Z95.2 Presence of prosthetic heart valve; K59.00 Constipation, unspecified; Z79.82 Long term (current) use of aspirin; Z66 Do not resuscitate; K64.9 Unspecified hemorrhoids; Y95 Nosocomial condition; J84.112 Idiopathic pulmonary fibrosis
CPT/HCPCS: C9113; J1644; J1940; J1956; J2543; J7030; J7040; J7050